=== PATIENT | female | born 1940 | race Caucasian/White ===

== ENCOUNTER 2017-11-19 09:34 | Emergency (ER) | payer OTHER ==
[~2017-11-19] VITALS: Ht 157.5 cm; Wt 50.8 kg
[~2017-11-19 09:34] MED LIST: AZITHROMYCIN500 MG PO; CIPROFLOXIN HC2.5 M1 OPHTHALMIC; FOLIC ACID1 MG PO; IBUPROFEN 800800 M1 PO; KLOR-CON 1010 MEQ PO; LASIX 20 MG TAB20 MG PO; LOMOTIL 2.5-0.01 TAB PO; OTIPRIO1 ML OT; POTASSIUM20 PO; PREDNISONE 10 M10 MG PO; TRAMADOL 50 MG50 MG PO; TUMS PO; UNICOMPLEX M TA1 TA1 PO; VITAMIN D1000 UNI1 PO
[2017-11-19] MEDS ORDERED: PROBIOTIC1 EAC1 PO (09:47)
[2017-11-19] MEDS ORDERED: CIPRO250 M1 PO (09:47)
[2017-11-19 09:55] LABS: URINE BILIRUBIN NEGATIVE (Negative); URINE BLOOD 2+ (Negative); URINE CLARITY CLEAR; URINE COLOR YELLOW; URINE GLUCOSE-RANDOM NEGATIVE (Negative); URINE KETONES NEGATIVE (Negative); URINE NITRITE-REFLEX NEGATIVE (Negative); URINE PROTEIN NEGATIVE (Negative); URINE SPECIFIC GRAVITY 1.025 (1.005-1.030); URINE UROBILINOGEN 0.2 E.U./dl (0.2-1.0)
[2017-11-19 09:56] LABS: URINE LEUKOCYTES-REFLEX 2+ (Negative)
[2017-11-19 10:04] LABS: SQUAMOUS 0-3 Few /LPF (0-3)
[2017-11-19 10:05] LABS: ABSOLUTE BASOPHILS 0.1 thou/uL (0.0-0.2); ABSOLUTE LYMPHOCYTES 1.2 thou/uL (0.8-5.3); ABSOLUTE MONOCYTES 0.4 thou/uL (0.0-1.2); ABSOLUTE NEUTROPHILS 4.6 thou/uL (1.6-8.1); EOSINOPHILS 0.5 %; HEMATOCRIT 39.4 % (37.0-47.0); HEMOGLOBIN 13.1 gm/dL (12.0-15.0); LYMPHOCYTES 18.7 %; MCH 31.5 pg (26.0-34.0); MCHC 33.3 g/dL (28.0-37.0); MCV 94.6 fL (80.0-100.0); MONOCYTES 6.9 %; NUCLEATED RBCS 0 /100WBC; PLATELET COUNT* 203 thou/uL (150-400); POLYS 72.9 %; RBC 4.17 mil/uL (4.20-5.00); RDW-CV 12.9 % (10.5-14.5); WBC 6.4 thou/uL (4.0-11.0)
[2017-11-19 10:05] LABS: BACTERIA-REFLEX 1-9 Few /HPF (None Seen); CASTS None Seen /LPF (None Seen); CRYSTALS None Seen /LPF (None Seen); MUCUS 4-6 Moderate strn/LPF (None Seen); URINE RBC 3-10 Few /HPF (0-2); URINE WBC-REFLEX 6-15 Few /HPF (0-5)
[2017-11-19 10:09] LABS: CALCIUM 8.7 mg/dL (8.5-10.1); CREATININE 0.9 mg/dL (0.6-1.3); POTASSIUM 4.1 mmol/L (3.5-5.1)
[2017-11-19 10:14] LABS: ALBUMIN 3.6 g/dL (3.4-5.0); TOTAL BILIRUBIN 0.3 mg/dL (<0.1-1.0)
[2017-11-19 13:10] VITALS: BP 144/67
== END 2017-11-19 13:10 | disposition home or self-care (01) ==
LOC: M.ERS 09:34
PROVIDERS: Personal Emergency Response Attendant
DX: E86.0 Dehydration (principal); M06.9 Rheumatoid arthritis, unspecified; Z90.49 Acquired absence of other specified parts of digestive tract; Z90.89 Acquired absence of other organs; Z85.71 Personal history of Hodgkin lymphoma; Z88.1 Allergy status to other antibiotic agents; Z88.5 Allergy status to narcotic agent; Z88.8 Allergy status to other drugs, medicaments and biological substances; Z88.2 Allergy status to sulfonamides

== ENCOUNTER 2018-01-30 11:25 | Emergency (ER) | payer OTHER ==
[~2018-01-30] VITALS: Ht 154.9 cm; Wt 53.1 kg
[~2018-01-30 11:25] MED LIST changes: +CIPRO250 M1 PO; +PROBIOTIC1 EAC1 PO
[2018-01-30] MEDS ORDERED: LEVAQUIN 500 M500 M2 PO (11:40)
[2018-01-30] MEDS ORDERED: FLAGYL500 MG PO (11:40)
[2018-01-30 12:07] LABS: ABSOLUTE LYMPHOCYTES 0.9 thou/uL (0.8-5.3); ABSOLUTE MONOCYTES 0.6 thou/uL (0.0-1.2); ABSOLUTE NEUTROPHILS 2.2 thou/uL (1.6-8.1); BASOPHILS 0.7 %; EOSINOPHILS 0.6 %; HEMATOCRIT 39.1 % (37.0-47.0); LYMPHOCYTES 23.9 %; MCH 31.5 pg (26.0-34.0); MCHC 33.1 g/dL (28.0-37.0); MONOCYTES 16.1 %; MPV 8.9 fl. (7.2-11.1); NUCLEATED RBCS 0 /100WBC; PLATELET COUNT* 160 thou/uL (150-400); POLYS 58.7 %; RBC 4.12 mil/uL (4.20-5.00); RDW-CV 13.5 % (10.5-14.5); WBC 3.7 thou/uL (4.0-11.0)
[2018-01-30 12:28] LABS: ANION GAP 7 mmol/L (7-16); BUN 13 mg/dL (7-18); CALCIUM 8.6 mg/dL (8.5-10.1); CHLORIDE 102 mmol/L (98-107); CO2 30 mmol/L (21-32); CREATININE 0.9 mg/dL (0.6-1.3); GLUCOSE 125 mg/dL (70-99); POTASSIUM 3.6 mmol/L (3.5-5.1); SODIUM 139 mmol/L (136-145)
[2018-01-30 12:32] LABS: ALBUMIN 3.2 g/dL (3.4-5.0); ALKALINE PHOSPHATASE 119 U/L (46-116); LIPASE 57 U/L (73-393); SGOT 20 U/L (15-37); SGPT 19 U/L (30-65); TOTAL BILIRUBIN 0.2 mg/dL (<0.1-1.0); TROPONIN-I LEVEL <0.06 ng/mL (<0.06)
[2018-01-30 13:35] LABS: URINE BILIRUBIN NEGATIVE (Negative); URINE BLOOD 2+ (Negative); URINE CLARITY CLEAR; URINE COLOR YELLOW; URINE GLUCOSE-RANDOM NEGATIVE (Negative); URINE KETONES NEGATIVE (Negative); URINE LEUKOCYTES NEGATIVE (Negative); URINE NITRITE NEGATIVE (Negative); URINE PROTEIN NEGATIVE (Negative); URINE UROBILINOGEN 0.2 E.U./dl (0.2-1.0)
[2018-01-30 13:42] LABS: SQUAMOUS NONE SEEN /LPF (0-3)
[2018-01-30 13:43] LABS: BACTERIA None Seen /HPF (None Seen); CRYSTALS None Seen /LPF (None Seen); HYALINE CASTS 0-3 Few /LPF (None Seen); MUCUS None Seen strn/LPF (None Seen); URINE RBC 3-10 Few /HPF (0-2); URINE WBC 0-5 Rare /HPF (0-5)
[2018-01-30] MEDS ORDERED: XANAX 0.5 MG0.5 M1 PO (13:59)
[2018-01-30] MEDS ORDERED: UNISOM SLEEP AI25 MG PO (14:15)
[2018-01-30 14:26] VITALS: BP 113/51
== END 2018-01-30 14:27 | disposition home or self-care (01) ==
LOC: M.ERS 11:25
PROVIDERS: Physician Assistant
DX: F41.9 Anxiety disorder, unspecified (principal); R51 Headache; R19.7 Diarrhea, unspecified; M06.9 Rheumatoid arthritis, unspecified; Z88.1 Allergy status to other antibiotic agents; Z88.5 Allergy status to narcotic agent; Z88.2 Allergy status to sulfonamides; Z88.8 Allergy status to other drugs, medicaments and biological substances; Z90.49 Acquired absence of other specified parts of digestive tract

== ENCOUNTER 2018-05-23 13:40 | Inpatient (IN) | payer OTHER ==
[~2018-05-23] VITALS: Ht 157.5 cm; Wt 60.8 kg
--- NOTE | ~2018-05-23 | CON ---
[address] [address] CONSULTATION Name: JUAREZ TARIQ Room: [address] IN M.R.#: [id number] Admission: 05/23/18 Attend Phys: Gio Cervantes MD Discharge: 05/26/18 Date of : 38 Report #: [id number] THIS REPORT FOR: //name// CC: Carrie Cervantes DATE OF SERVICE: 05/26/2018 HISTORY OF PRESENT ILLNESS: This is a pleasant 78-year-old female with past medical history significant for rheumatoid arthritis, non-Hodgkin's lymphoma, which was treated 20 years back, who is presenting for evaluation of weakness and cough, fever. The patient reports that she has had ongoing fever for the last 2-3 days along with night sweats and weight loss. The patient reports losing about 10 pounds over the last one month. The GI service has been consulted for evaluation of a dilated colon noted on her CT. The patient was initially diagnosed with non-Hodgkin's lymphoma more than 20 years back and since then has been in remission. The patient underwent partial gastrectomy, small bowel resection and resection of large bowel at that time. 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 The patient also reports that she has noticed increasing difficulty swallowing over the last one month with progressive dysphagia to solids and very thick liquids. The patient reports that she also has been anxious and her appetite has decreased as she recently lost her . PAST MEDICAL HISTORY: As mentioned above, the patient has history of rheumatoid arthritis and non-Hodgkin's lymphoma. PAST SURGICAL HISTORY: The patient had partial gastrectomy, duodenectomy, hemicolectomy. The patient also had cataract surgeries in the past. SOCIAL HISTORY: The patient denies smoking, alcohol or recreational drug use. FAMILY HISTORY: There is no family history of gastroesophageal or colorectal cancer. REVIEW OF SYSTEMS: A comprehensive 10-point review of systems is negative except for what was mentioned in the HPI. PHYSICAL EXAMINATION: VITAL SIGNS: Temperature 37.0, pulse rate 95, respirations 17, blood pressure 112/53. GENERAL: The patient is alert, awake, oriented x 3. HEENT: Pupils are equal, round, reactive to light and accommodation. [place] [address] CONSULTATION Name: JUAREZ TARIQ Room: [address]#: [id number] Admission: 05/23/18 Attend Phys: Gio Cervantes MD Discharge: 05/26/18 Date of : 38 Report #: [id number] NECK: There is no congestion. LUNGS: Clear to auscultation bilaterally. CARDIOVASCULAR: Rate and rhythm regular. S1, S2 present. ABDOMEN: Soft. There is no distention, guarding or rigidity. EXTREMITIES: Warm and well perfused. There is no edema. LABORATORY DATA: Hemoglobin 11.8, hematocrit 35.5, WBC count 7.8, platelet count 323. Sodium 138, potassium 4.5, chloride 102, bicarbonate 28, BUN 14, creatinine 0.9. IMAGING: CT abdomen and pelvis, this demonstrates operative changes compatible with distal gastrectomy, partial duodenectomy and small and large bowel anastomosis. The proximal colon appears to be dilated and filled with stool. Distal colon is evacuated. The patient had a barium enema and this demonstrates no obvious masses, presence of dilation of proximal colon and relative decompression of the distal colon. ASSESSMENT AND PLAN: This is a pleasant 78-year-old female with past medical history of non-Hodgkin's lymphoma, status post partial gastrectomy, duodenectomy, small and large bowel resection with anastomosis, history of chronic diarrhea who is presenting for evaluation of fevers and night sweats and weight loss. The patient was noted to have dilation of the large bowel loops on CT scan. As a result, she had a barium enema performed. Barium enema failed to demonstrate any significant obstruction to outflow of contrast in the distal colon. The patient reports that her bowel movements have essentially been unchanged. She does have chronic diarrhea from recurrent bouts of small intestinal bacterial overgrowth and this has remained unchanged. The patient also has been complaining of intermittent dysphagia to solids over the last one month. I did offer the patient EGD and colonoscopy for evaluation of these, but she refused to have them at this time. She follows with Dr. Richards as outpatient and reported that she would like to call him and set up a clinic appointment. I would give the patient a 14-day course of metronidazole 500 mg p.o. t.i.d. for small intestinal bacterial overgrowth and we will set up the clinic followup visit. By: [id number] Norman MD /marc
--- NOTE | ~2018-05-23 | CON ---
[address] [address] CONSULTATION Name: JUAREZ TARIQ Room: [address] IN .R.#: [id number] Admission: 05/23/18 Attend Phys: Gio Cervantes MD Discharge: Date of : 38 Report #: [id number] THIS REPORT FOR: //name// CC: Orville Denny MD REASON FOR CONSULT: Distant history of non-Hodgkin's lymphoma, now with sweats and fever and weight loss. HISTORY OF PRESENT ILLNESS: The patient is a very pleasant 78-year-old female who had a distant history of intermediate-grade non-Hodgkin's lymphoma in 1996. It sounds like she received chemotherapy with PMitCEBO and was thought to be in remission. It sounds like about the time of surgery, she had major surgery with resection of part of her distal stomach, part of the duodenum, part of large intestine. Also back pain and sounds like it was complicated by that. She also had some rectal incontinence and also has had chronic diarrhea since that time. The patient reports that her in December, she was not eating very well. Her mood was not good. She was begun on Cymbalta. Her chronic diarrhea of 20 years then got better when she began the Cymbalta. She then has about a 10-day history of some left-sided hip and knee troubles what sounds like was almost radiating down her leg, that her whole body was achy, sounds like she got a steroid shot in her hip about last Friday. Note that today is Friday, so about 5 days ago on Friday, she felt much better. She also said that she has had some night sweats began about 4 days before the shot and lasted probably for about the last week. She denied any new headache troubles. She does have some chronic sinus drainage, which is clear and unchanged. It causes her to cough occasionally. No mouth sores, no skin rash. No blood in her urine or stool. No burning on urination or urgency. She does have some chronic reflux, but it sounds like it may be partly related per her description to her sinus drainage. No skin infections that she is aware of. She is not aware being around anyone specifically sick recently. PAST MEDICAL HISTORY: Notable for the history of what sounds like intermediate-grade non-Hodgkin's lymphoma of the abdomen from about 1996, receive chemotherapy, thought to be in remission, has not seen Dr. Ferguson for probably, sounds like may be 15 or 18 years, also history of rheumatoid arthritis that she says she has not had any treatment or joint pains like that for about 15-20 years. She also has had chronic diarrhea since the surgery. Also had the trouble with what sounds almost a sphincter reconstruction by Dr. Surinder Schumacher that did not help. Also history of hysterectomy and an appendectomy in the past, also had a benign left breast biopsy, 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 FAMILY HISTORY: Father and mother both had cardiac illnesses as they got older. She is an only child. I think she has family, but they have been healthy. As mentioned above, her in December from cardiac issues. ALLERGIES: Has had troubles with AMOXICILLIN, CODEINE, VERSED, PROPOXYPHENE, and SULFA ANTIBIOTICS. MEDICATIONS: Here in the hospital currently include Lovenox 40 mg at bedtime, ceftriaxone 1 gram daily, pantoprazole 40 mg daily, melatonin 3 mg at night p.r.n., vitamin D 1000 units b.i.d., duloxetine 20 daily, multivitamin with mineral 1 tab daily, folic acid 1 mg daily, lactobacillus 1 tab daily, Tylenol 500 mg q. 4 hours p.r.n. LABORATORY DATA: Lab tests reviewed here include a BUN of 19, creatinine of 0.9. Liver functions were normal with an AST of 24. Total bilirubin 0.3, alkaline phosphatase was slightly elevated at 142. Note that in the past, she has been in the 154-136 range. Albumin 3.3. Lactic acid 1.4. TSH 0.869. Vitamin B12 556. INR 1.0. White count on admission 12, today 6.5, hemoglobin on admission 13, today 10.9, MCV 93.2, which is stable compared to 1996 and also from 11/2015. Platelet count 328 yesterday, 272 today. Differential: No reported acute changes. ANC yesterday was 9.2, ANC today is 4.3. Sed rate elevated at 53. CRP elevated at 27.9. HIV test pending. Influenza test not detected. UA notable for 3+ leukocytes and nitrite negative, though there were bacteria seen 10-30 and 0-5 WBCs, 0-3 squamous cells. RADIOLOGIC DATA: Radiologic studies this admit include chest x-ray without any acute findings. PHYSICAL EXAMINATION: VITAL SIGNS: Height is 5 feet 2, which is 157.5 cm. Weight is 134 pounds, which is 60.8 kg. Blood pressure most recently 96/52 the left arm with respirations of 16, pulse 62, temperature 97.4. Note that her temperature was 107.3 in the ER. MOOD: The patient is alert and pleasant and conversant. NEUROLOGIC: Speech and thought pattern appear to be normal. She is moving arms and legs. Face is symmetrical. LUNGS: Have symmetric respirations without rales, rhonchi or wheezes. Does have central rhonchi, occasionally clear when she coughs from nasal drainage. HEART: Appears regular rate. LYMPHATICS: No enlarged lymph nodes in the supraclavicular, cervical, axillary or inguinal, epitrochlear region. ABDOMEN: Nontender, [place] [address] CONSULTATION Name: JUAREZ TARIQ Room: [address]#: [id number] Admission: 05/23/18 Attend Phys: Gio Cervantes MD Discharge: Date of : 38 Report #: [id number] EXTREMITIES: Without edema. SKIN: Appears to be intact without any unusual ecchymosis or bruising. ASSESSMENT AND PLAN: 1. History of intermediate-grade lymphoma from 1996. Now 22 years later, it will be highly unlikely for that to recur. I am suspicious that her recent sweats and also documented fever may be related to urinary tract infection. We would suggest waiting to see if this resolves tonight. If it does not, we could reimage with CAT scans, so I would doubt that, that would be causing her symptoms, but there could be some other malignancy or process. Our team will follow up with the patient tomorrow. 2. Mild anemia. Follow serial counts. May consider checking iron panel if persists low. 3. Fever and bacteriuria, on ceftriaxone. Defer to infectious disease. Await final results. Note that influenza antigen tests were negative. Cultures pending on urinalysis. 4. Mood, is on Cymbalta 20 mg. 5. Chronic diarrhea, most likely underlying related to prior bowel surgery from 1996. With fever, we will await to see what other testing is suggested. 6. Sinus drainage present for many years. 7. Supposed history of rheumatoid arthritis, reports no symptoms or treatment for large number of years. 8. Weight loss, has occurred since 's . Albumin appears to be very good range, which would suggest not from occult malignancy. Our team will follow. By: [id number] Vallejo MD /nt
[~2018-05-23 13:40] MED LIST changes: +FLAGYL500 MG PO; +LEVAQUIN 500 M500 M2 PO; +UNISOM SLEEP AI25 MG PO; +XANAX 0.5 MG0.5 M1 PO
[2018-05-23 14:07] VITALS: BP 135/94
[2018-05-23] MEDS ORDERED: CYMBALTA20 MG PO (14:15)
[2018-05-23] MEDS ORDERED: XANAX 0.25 MG0.25 MG PO (14:16)
[2018-05-23 15:22] LABS: INFLUENZA A ANTIGEN None Detected (None Detect); INFLUENZA B ANTIGEN None Detected (None Detect)
[2018-05-23 15:29] LABS: ABSOLUTE BASOPHILS 0.1 thou/uL (0.0-0.2); ABSOLUTE LYMPHOCYTES 1.5 thou/uL (0.8-5.3); ABSOLUTE MONOCYTES 1.1 thou/uL (0.0-1.2); ABSOLUTE NEUTROPHILS 9.2 thou/uL (1.6-8.1); BASOPHILS 0.6 %; EOSINOPHILS 0.2 %; HEMATOCRIT 39.8 % (37.0-47.0); LYMPHOCYTES 12.8 %; MCH 30.3 pg (26.0-34.0); MCHC 32.7 g/dL (28.0-37.0); MCV 92.5 fL (80.0-100.0); MONOCYTES 9.5 %; MPV 8.4 fl. (7.2-11.1); NUCLEATED RBCS 0 /100WBC; PLATELET COUNT* 328 thou/uL (150-400); POLYS 76.9 %; RDW-CV 13.2 % (10.5-14.5)
[2018-05-23 15:31] LABS: URINE BILIRUBIN NEGATIVE (Negative); URINE BLOOD 2+ (Negative); URINE CLARITY CLEAR; URINE COLOR YELLOW; URINE GLUCOSE-RANDOM NEGATIVE (Negative); URINE KETONES NEGATIVE (Negative); URINE NITRITE-REFLEX NEGATIVE (Negative); URINE PROTEIN NEGATIVE (Negative); URINE SPECIFIC GRAVITY 1.015 (1.005-1.030); URINE UROBILINOGEN 0.2 E.U./dl (0.2-1.0)
[2018-05-23 15:33] LABS: URINE LEUKOCYTES-REFLEX 3+ (Negative)
[2018-05-23 15:34] LABS: ANION GAP 7 mmol/L (7-16); BUN 19 mg/dL (7-18); CALCIUM 8.5 mg/dL (8.5-10.1); CHLORIDE 99 mmol/L (98-107); CO2 27 mmol/L (21-32); CREATININE 0.9 mg/dL (0.6-1.3); GLUCOSE 118 mg/dL (70-99); POTASSIUM 4.3 mmol/L (3.5-5.1); PROTIME 10.6 Seconds (9.20-11.50); SODIUM 133 mmol/L (136-145)
[2018-05-23 15:45] LABS: ALBUMIN 3.3 g/dL (3.4-5.0); ALKALINE PHOSPHATASE 142 U/L (46-116); LIPASE 51 U/L (73-393); NT-PRO BRAIN NAT PEPTIDE 829 pg/mL (<300); SGOT 24 U/L (15-37); SGPT 30 U/L (30-65); TOTAL BILIRUBIN 0.3 mg/dL (<0.1-1.0); TOTAL PROTEIN 7.6 g/dL (6.4-8.2); TROPONIN-I LEVEL <0.06 ng/mL (<0.06)
[2018-05-23 15:48] LABS: SQUAMOUS 0-3 Few /LPF (0-3); URINE WBC-REFLEX 0-5 Rare /HPF (0-5)
[2018-05-23 15:49] LABS: MUCUS 0-3 Light strn/LPF (None Seen); URINE RBC 3-10 Few /HPF (0-2)
[2018-05-23 15:50] LABS: CASTS None Seen /LPF (None Seen); CRYSTALS None Seen /LPF (None Seen)
[2018-05-23 17:09] VITALS: BP 120/63
[2018-05-23 17:10] VITALS: BP 117/58
[2018-05-24] VITALS: BP 96/52
[2018-05-24 04:20] LABS: ABSOLUTE LYMPHOCYTES 1.4 thou/uL (0.8-5.3); ABSOLUTE MONOCYTES 0.8 thou/uL (0.0-1.2); ABSOLUTE NEUTROPHILS 4.3 thou/uL (1.6-8.1); BASOPHILS 0.6 %; EOSINOPHILS 0.7 %; HEMATOCRIT 33.2 % (37.0-47.0); LYMPHOCYTES 21.1 %; MCH 30.6 pg (26.0-34.0); MCHC 32.8 g/dL (28.0-37.0); MCV 93.2 fL (80.0-100.0); MONOCYTES 12.4 %; MPV 8.3 fl. (7.2-11.1); NUCLEATED RBCS 0 /100WBC; PLATELET COUNT* 272 thou/uL (150-400); POLYS 65.2 %; RBC 3.56 mil/uL (4.20-5.00); RDW-CV 13.3 % (10.5-14.5); WBC 6.5 thou/uL (4.0-11.0)
[2018-05-24 04:44] LABS: ANION GAP 7 mmol/L (7-16); BUN 13 mg/dL (7-18); CALCIUM 8.2 mg/dL (8.5-10.1); CHLORIDE 108 mmol/L (98-107); CO2 25 mmol/L (21-32); CREATININE 0.8 mg/dL (0.6-1.3); GLUCOSE 113 mg/dL (70-99); MAGNESIUM 1.6 mg/dL (1.8-2.4); SODIUM 140 mmol/L (136-145); TROPONIN-I LEVEL <0.06 ng/mL (<0.06)
[2018-05-24 04:50] LABS: HEMOGLOBIN 10.9 gm/dL (12.0-15.0)
[2018-05-24 05:46] LABS: ESR (SEDRATE) 53 mm/hr (0-30)
[2018-05-24 08:00] VITALS: BP 120/49
--- NOTE | 2018-05-24 12:13 | EKG ---
[place] [address] ELECTROCARDIOGRAM REPORT Name: JUAREZ TARIQ Room: [address] ADM IN .R.#: [id number] Admission: 05/23/18 Attend Phys: Gio Cervantes MD Discharge: Date of : 38 Report #: [id number] THIS REPORT FOR: //name// [facility] ED Test Date: 2018-05-23 Test Time: 15:22:34 Pat Name: JUAREZ TARIQ Department: Room: [facility] Gender: F Railroad Maintenance Clerk: ILYA : 1940 Requested By: Ham Barnhart Order Number: [id number] MD: Shahab Boykin Measurements Intervals [place] Rate: 77 P: 82 KS: 124 QRS: 63 QRSD: 84 T: 50 QT: 372 QTc: 421 Interpretive Statements Sinus rhythm Compared to ECG 11/29/2015 15:44:36 No significant changes Electronically Signed On 05-24-2018 12:13:22 [employer]YROLL SECRETARY by Shahab Boykin [email or web address] <ELECTRONICALLY SIGNED> By: Shahab Boykin MD, [facility] 05/24/18 1213 1522 21 Shahab Boykin MD, FACC /EPI
[2018-05-24 16:00] VITALS: BP 138/60
[2018-05-25] VITALS: BP 117/59
[2018-05-25 04:05] LABS: CALCIUM 8.4 mg/dL (8.5-10.1); CREATININE 0.9 mg/dL (0.6-1.3); MAGNESIUM 2.1 mg/dL (1.8-2.4); POTASSIUM 4.5 mmol/L (3.5-5.1)
[2018-05-25 04:12] LABS: HEMATOCRIT 35.4 % (37.0-47.0); HEMOGLOBIN 11.8 gm/dL (12.0-15.0); MCH 31.1 pg (26.0-34.0); MCHC 33.4 g/dL (28.0-37.0); MCV 93.2 fL (80.0-100.0); MPV 8.3 fl. (7.2-11.1); PLATELET COUNT* 323 thou/uL (150-400); RDW-CV 13.5 % (10.5-14.5); WBC 7.8 thou/uL (4.0-11.0)
--- NOTE | 2018-05-25 07:37 | CON ---
[address] [address] CONSULTATION Name: JUAREZ TARIQ Room: [address] IN M.R.#: [id number] Admission: 05/23/18 Attend Phys: Gio Cervantes MD Discharge: Date of : 38 Report #: [id number] THIS REPORT FOR: //name// CC: Carrie Cervantes DATE OF SERVICE: 05/24/2018 INFECTIOUS DISEASE CONSULTATION ATTENDING PHYSICIAN: Gio Cervantes M.D. REASON FOR EVALUATION: Complicated urinary tract infection. HISTORY OF PRESENT ILLNESS: Chart reviewed, the patient examined. This is an 78-year-old female with distant history of greater than 20 years ago of non-Hodgkin's lymphoma, who presented with a constellation of signs and symptoms, including cough. It is not clear if she had fevers. She has had several days of heavy night sweats as well. She notes onset roughly 9 days ago, when she developed generalized joint pain and felt perhaps it was an exacerbation of her rheumatoid arthritis which she has had, although describes no really flare since the 1970s. She was evaluated and given some corticosteroids and that resolved; however, she had persistent issues with the night sweats. It is notable she has chronic diarrhea that would have been exacerbated as well, she states, in retrospect, she had eaten at a [employer] restaurant and the entirety of the illness was subsequent to that. Evaluation noted negative influenzae antigen. CBC, white count was mildly elevated at 12,000. Urinalysis did show some degree of bacteriuria, although minimal pyuria. Lactic acid 1.4. Chest x-ray was otherwise unremarkable. Sed rate was 53. She was empirically started on therapy with ceftriaxone. Overall, she feels somewhat better, although she has had persistent night sweats. She did have a degree of weight loss, although this coincided with the of her spouse. She is not encephalopathic. Denies significant pulmonary or gastrointestinal complaints at this point. ALLERGIES: CODEINE, PROPOXYPHENE, AMOXICILLIN AND MIDAZOLAM. MEDICATIONS: Current medicines include enoxaparin, ceftriaxone, pantoprazole, ipratropium and albuterol inhaler, melatonin, cholecalciferol, duloxetine, folic acid and Lactobacillus. PAST MEDICAL HISTORY: As noted above, distant history of non-Hodgkin's lymphoma; rheumatoid arthritis, again distant history. 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 [address] CONSULTATION Name: ANGEL TARIQTHOMAS Charlton Room: [address] IN [facility]#: [id number] Admission: 05/23/18 Attend Phys: Gio Cervantes MD Discharge: Date of : 38 Report #: [id number] SOCIAL HISTORY: Nonsmoker. Occasional ethanol. No illicit drug use. FAMILY HISTORY: Noncontributory. REVIEW OF SYSTEMS: Otherwise, unremarkable 10-point review of systems, with the exception noted in the above history of present illness. PHYSICAL EXAMINATION: GENERAL: She is pleasant, alert, cooperative, appears chronically ill and undernourished. VITAL SIGNS: Temperature 101.3 max, more recently 97.4; pulse 62; respirations 16 and blood pressure 96/52. SKIN: Warm. There are no particular rashes. HEENT: Normocephalic. Extraocular muscles intact. NECK: Supple. LUNGS: Somewhat diminished, few scattered crackles at the bases posteriorly. HEART: Regular. I do not appreciate a murmur. ABDOMEN: Soft, nontender and nondistended. EXTREMITIES: No cyanosis. GENITOURINARY: Deferred. RECTAL: Deferred. LABORATORY DATA: As described above, influenza antigen was negative. CBC: White count 12.0, H and H 13.0 and 39.8 and platelets of 328,000. PT of 10.6, INR of 1.0. Electrolytes: Sodium 133, potassium 4.3, chloride 99, bicarbonate is 27, anion gap of 7 and BUN and creatinine 19 and 0.9. LFTs unremarkable. Alkaline phosphatase borderline elevated at 142. Albumin 3.3. Total protein of 7.6. Estimated GFR 60. Lactic acid 1.4. CRP of 27.9. TSH of 0.869. ASSESSMENT AND PLAN: Night sweats. It is not entirely clear if it has been accompanied with fevers, had not been recorded, although certainly on admission, temperature was elevated at 101.3, although she defervesced quite quickly. We will continue empiric therapy with ceftriaxone. I did tell her I would get some stool studies to confirm this arthritic Staph was not a post-enteritis reactive arthritis. At this point, she does not look overly toxic. We will monitor expectantly. Her other evidence of ongoing infection either focal site of pyogenic infection or perhaps more likely a systemic illness with other bacterial or viral etiology. I did discuss with Dr. Vallejo. He is not inclined to favor a diagnosis of recurrent lymphoma at this point. <ELECTRONICALLY SIGNED> By: Mehrdad Calabrese MD 05/25/18 0737 [id number] [id number] Calabrese MD /nt
[2018-05-25 07:40] VITALS: BP 140/65
[2018-05-25 15:10] LABS: HIV-1/HIV-2 ANTIBODY Non Reactive (Non Reactive)
[2018-05-25 15:13] VITALS: BP 132/54
[2018-05-25 16:10] LABS: ABSOLUTE BASOPHILS 0.1 thou/uL (0.0-0.2); ABSOLUTE EOSINOPHILS 0.1 thou/uL (0.0-0.7); ABSOLUTE LYMPHOCYTES 1.3 thou/uL (0.8-5.3); ABSOLUTE MONOCYTES 0.8 thou/uL (0.0-1.2); ABSOLUTE NEUTROPHILS 5.6 thou/uL (1.6-8.1); BASOPHILS 1.2 %; EOSINOPHILS 1.3 %; LYMPHOCYTES 16.4 %; MONOCYTES 9.8 %; POLYS 71.3 %
[2018-05-26 00:04] VITALS: BP 124/61
[2018-05-26 03:06] LABS: HEMOGLOBIN 11.5 g/dL (11.1-15.9)
[2018-05-26 08:05] VITALS: BP 103/57
[2018-05-26 14:05] VITALS: BP 103/57
[2018-05-26] MEDS ORDERED: FLAGYL500 M1 PO (15:16)
[2018-05-26 15:49] VITALS: BP 112/53
== END 2018-05-26 16:58 | disposition home or self-care (01) | DRG 864 ==
LOC: M.ERS 13:40 → M.3W 16:10 → M.TBA-ER 16:10 → M.3W 17:34
PROVIDERS: Family Medicine; ADMIT Family Medicine
DX: R50.9 Fever, unspecified (principal); C85.90 Non-Hodgkin lymphoma, unspecified, unspecified site; E44.1 Mild protein-calorie malnutrition; D64.9 Anemia, unspecified; K52.9 Noninfective gastroenteritis and colitis, unspecified; R13.10 Dysphagia, unspecified; E83.42 Hypomagnesemia; M25.50 Pain in unspecified joint; N18.3 Chronic kidney disease, stage 3 (moderate); M06.9 Rheumatoid arthritis, unspecified; K21.9 Gastro-esophageal reflux disease without esophagitis; Z90.49 Acquired absence of other specified parts of digestive tract; Z98.41 Cataract extraction status, right eye; Z98.42 Cataract extraction status, left eye; Z79.899 Other long term (current) drug therapy; Z88.5 Allergy status to narcotic agent; Z88.2 Allergy status to sulfonamides; Z88.8 Allergy status to other drugs, medicaments and biological substances; Z88.1 Allergy status to other antibiotic agents; Z92.21 Personal history of antineoplastic chemotherapy; Z90.710 Acquired absence of both cervix and uterus; Z82.49 Family history of ischemic heart disease and other diseases of the circulatory system; Z68.24 Body mass index [BMI] 24.0-24.9, adult

== ENCOUNTER 2018-06-15 10:00 | Inpatient (IN) | payer OTHER ==
[~2018-06-15] VITALS: Ht 157.5 cm; Wt 49.9 kg
[~2018-06-15 10:00] MED LIST changes: +CYMBALTA20 MG PO; +FLAGYL500 M1 PO; +XANAX 0.25 MG0.25 MG PO
[2018-06-15 10:14] VITALS: BP 156/67
[2018-06-15 10:35] LABS: ABSOLUTE EOSINOPHILS 0.1 thou/uL (0.0-0.7); ABSOLUTE MONOCYTES 0.5 thou/uL (0.0-1.2); ABSOLUTE NEUTROPHILS 5.4 thou/uL (1.6-8.1); BASOPHILS 0.4 %; EOSINOPHILS 1.2 %; HEMATOCRIT 36.6 % (37.0-47.0); LYMPHOCYTES 14.9 %; MCH 30.4 pg (26.0-34.0); MCHC 32.7 g/dL (28.0-37.0); MCV 92.8 fL (80.0-100.0); MPV 8.1 fl. (7.2-11.1); NUCLEATED RBCS 0 /100WBC; PLATELET COUNT* 313 thou/uL (150-400); POLYS 76.5 %; RBC 3.94 mil/uL (4.20-5.00); RDW-CV 14.2 % (10.5-14.5)
[2018-06-15 10:43] LABS: CALCIUM 8.5 mg/dL (8.5-10.1); CREATININE 0.9 mg/dL (0.6-1.3); POTASSIUM 4.1 mmol/L (3.5-5.1)
[2018-06-15 10:48] LABS: ALBUMIN 3.1 g/dL (3.4-5.0); MAGNESIUM 1.8 mg/dL (1.8-2.4); TOTAL BILIRUBIN 0.3 mg/dL (<0.1-1.0)
--- NOTE | 2018-06-15 10:51 | NUR ---
XRAY AT BEDSIDE
[2018-06-15 11:11] LABS: BE 1.8 mmol/L (-2 to +3); PCO2 37.2 mmHg (35.0-45.0); PO2 92.1 mmHg (75.0-100.0); pH 7.455 (7.340-7.450)
[2018-06-15 13:10] LABS: URINE BILIRUBIN NEGATIVE (Negative); URINE BLOOD TRACE (Negative); URINE CLARITY CLEAR; URINE COLOR YELLOW; URINE GLUCOSE-RANDOM NEGATIVE (Negative); URINE KETONES NEGATIVE (Negative); URINE NITRITE-REFLEX NEGATIVE (Negative); URINE PROTEIN NEGATIVE (Negative); URINE UROBILINOGEN 0.2 E.U./dl (0.2-1.0)
[2018-06-15 13:15] LABS: URINE LEUKOCYTES-REFLEX 2+ (Negative)
[2018-06-15 13:48] LABS: SQUAMOUS NONE SEEN /LPF (0-3)
[2018-06-15 13:49] LABS: URINE WBC-REFLEX 0-5 Rare /HPF (0-5)
[2018-06-15 13:50] LABS: BACTERIA-REFLEX 1-9 Few /HPF (None Seen); CASTS None Seen /LPF (None Seen); CRYSTALS None Seen /LPF (None Seen); MUCUS None Seen strn/LPF (None Seen); URINE RBC None Seen /HPF (0-2)
[2018-06-15 15:05] VITALS: BP 121/50
[2018-06-15 16:20] VITALS: BP 123/60
[2018-06-15 17:30] VITALS: BP 115/77
--- NOTE | 2018-06-15 18:43 | NUR ---
ALERT AND ORIENTED X4. UP STAND BY ASSIST IN ROOM. IV IS PATENT AND INFUSING. DENIES PAIN AND NAUSEA. TOLERATING DIET. VSS ON ROBYN AIR. HOURLY ROUNDS HAVE BEEN MAINTAINED SINCE ARRIVING TO UNIT. CALL LIGHT IS WITHIN REACH. NURSING WILL CONTINUE TO MONITOR.
[2018-06-15 20:00] VITALS: BP 127/66
[2018-06-16 04:28] VITALS: BP 117/62
[2018-06-16 04:35] LABS: CALCIUM 8.2 mg/dL (8.5-10.1); CREATININE 0.9 mg/dL (0.6-1.3); MAGNESIUM 1.9 mg/dL (1.8-2.4); POTASSIUM 3.8 mmol/L (3.5-5.1)
[2018-06-16 04:40] LABS: ABSOLUTE EOSINOPHILS 0.1 thou/uL (0.0-0.7); ABSOLUTE LYMPHOCYTES 1.6 thou/uL (0.8-5.3); ABSOLUTE MONOCYTES 0.6 thou/uL (0.0-1.2); ABSOLUTE NEUTROPHILS 2.9 thou/uL (1.6-8.1); BASOPHILS 0.5 %; EOSINOPHILS 2.6 %; HEMATOCRIT 30.7 % (37.0-47.0); HEMOGLOBIN 10.4 gm/dL (12.0-15.0); LYMPHOCYTES 30.7 %; MCH 31.7 pg (26.0-34.0); MCHC 33.8 g/dL (28.0-37.0); MCV 93.6 fL (80.0-100.0); MONOCYTES 10.8 %; MPV 8.3 fl. (7.2-11.1); NUCLEATED RBCS 0 /100WBC; POLYS 55.4 %; RBC 3.27 mil/uL (4.20-5.00); RDW-CV 13.7 % (10.5-14.5); WBC 5.2 thou/uL (4.0-11.0)
--- NOTE | 2018-06-16 04:47 | NUR ---
PT CARE ASSUMED AT 1930. SAT MAINTAINED IN RA. CALL LIGHT WITHIN REACH AND BED IN LOW POSITION. DENIES PAIN AND SOB. ALERT AND ORIENTED X4. HOURLY ROUNDING DONE FOR PT SAFETY.
[2018-06-16 04:54] LABS: PLATELET COUNT* 229 thou/uL (150-400)
[2018-06-16 07:45] VITALS: BP 113/57
[2018-06-16 11:42] VITALS: BP 113/57
[2018-06-16 13:32] VITALS: BP 113/57
--- NOTE | 2018-06-16 13:33 | NUR ---
PATIENT LEFT UNIT AT 1325. ALERT AND ORIENTED X4. UP STAND BY ASSIST IN ROOM. IV DC'D. DENIES PAIN AND NAUSEA. TOLERATING DIET. ALL PERSONAL ITEMS LEFT WITH PATIENT. DISCHARGE INSTRUCTIONS WENT OVER AND SENT WITH PATIENT. VSS ON ROOM AIR. HOURLY ROUNDS HAVE BEEN MAINTAINED THROUGHOUT SHIFT. LEFT WITH DAUGHTER VIA CAR.
[2018-06-16 13:38] VITALS: BP 113/57
== END 2018-06-16 13:25 | disposition home or self-care (01) | DRG 392 ==
LOC: M.ERS 10:00 → M.TBA-ER 14:26 → M.ORTHSURG 15:23
PROVIDERS: Personal Emergency Response Attendant; ADMIT Family Medicine
DX: R11.2 Nausea with vomiting, unspecified (principal); E44.1 Mild protein-calorie malnutrition; E86.0 Dehydration; M06.9 Rheumatoid arthritis, unspecified; R13.10 Dysphagia, unspecified; N18.3 Chronic kidney disease, stage 3 (moderate); K59.09 Other constipation; T37.3X5A Adverse effect of other antiprotozoal drugs, initial encounter; Y92.89 Other specified places as the place of occurrence of the external cause; Z85.72 Personal history of non-Hodgkin lymphomas; Z90.710 Acquired absence of both cervix and uterus; Z98.42 Cataract extraction status, left eye; Z68.20 Body mass index [BMI] 20.0-20.9, adult; Z98.41 Cataract extraction status, right eye; Z79.899 Other long term (current) drug therapy; Z88.5 Allergy status to narcotic agent; Z88.2 Allergy status to sulfonamides; Z88.8 Allergy status to other drugs, medicaments and biological substances

== ENCOUNTER 2018-11-03 09:10 | Emergency (ER) | payer OTHER ==
[~2018-11-03] VITALS: Ht 154.9 cm; Wt 52.2 kg
[2018-11-03 09:53] LABS: ABSOLUTE BASOPHILS 0.1 thou/uL (0.0-0.2); ABSOLUTE EOSINOPHILS 0.2 thou/uL (0.0-0.7); ABSOLUTE LYMPHOCYTES 1.4 thou/uL (0.8-5.3); ABSOLUTE MONOCYTES 0.6 thou/uL (0.0-1.2); ABSOLUTE NEUTROPHILS 4.7 thou/uL (1.6-8.1); BASOPHILS 1.1 %; EOSINOPHILS 3.4 %; HEMATOCRIT 34.8 % (37.0-47.0); HEMOGLOBIN 11.7 gm/dL (12.0-15.0); LYMPHOCYTES 20.2 %; MCH 30.7 pg (26.0-34.0); MCHC 33.8 g/dL (28.0-37.0); MCV 90.8 fL (80.0-100.0); MONOCYTES 8.9 %; MPV 8.8 fl. (7.2-11.1); NUCLEATED RBCS 0 /100WBC; PLATELET COUNT* 268 thou/uL (150-400); POLYS 66.4 %; RBC 3.83 mil/uL (4.20-5.00); RDW-CV 14.4 % (10.5-14.5); WBC 7.1 thou/uL (4.0-11.0)
[2018-11-03 09:59] LABS: CALCIUM 8.2 mg/dL (8.5-10.1); CREATININE 0.9 mg/dL (0.6-1.3)
[2018-11-03 10:03] LABS: ALBUMIN 3.1 g/dL (3.4-5.0); MAGNESIUM 1.5 mg/dL (1.8-2.4); TOTAL BILIRUBIN 0.3 mg/dL (<0.1-1.0); TOTAL PROTEIN 7.2 g/dL (6.4-8.2)
[2018-11-03 10:22] LABS: URINE BILIRUBIN NEGATIVE (Negative); URINE BLOOD TRACE (Negative); URINE CLARITY CLEAR; URINE COLOR YELLOW; URINE GLUCOSE-RANDOM NEGATIVE (Negative); URINE KETONES NEGATIVE (Negative); URINE LEUKOCYTES-REFLEX TRACE (Negative); URINE NITRITE-REFLEX POSITIVE (Negative); URINE PROTEIN NEGATIVE (Negative); URINE SPECIFIC GRAVITY <= 1.005 (1.005-1.030); URINE UROBILINOGEN 0.2 E.U./dl (0.2-1.0)
[2018-11-03 10:31] LABS: BACTERIA-REFLEX None Seen /HPF (None Seen); CASTS None Seen /LPF (None Seen); CRYSTALS None Seen /LPF (None Seen); SQUAMOUS 0-3 Few /LPF (0-3); URINE RBC 0-2 Rare /HPF (0-2); URINE WBC-REFLEX 0-5 Rare /HPF (0-5)
[2018-11-03] MEDS ORDERED: MACROBID 100 M100 M2 PO (12:01)
[2018-11-03 12:23] VITALS: BP 118/46
== END 2018-11-03 12:24 | disposition home or self-care (01) ==
LOC: M.ERS 09:10
PROVIDERS: Personal Emergency Response Attendant
DX: N39.0 Urinary tract infection, site not specified (principal); E86.0 Dehydration; M06.9 Rheumatoid arthritis, unspecified; Z88.1 Allergy status to other antibiotic agents; Z88.5 Allergy status to narcotic agent; Z88.4 Allergy status to anesthetic agent; Z88.2 Allergy status to sulfonamides; Z88.8 Allergy status to other drugs, medicaments and biological substances

== ENCOUNTER → 2018-12-08 | Outpatient (CLI) | payer OTHER ==
[~2018-12-08] MED LIST changes: +MACROBID 100 M100 M2 PO
== END ==
LOC: M.NUC 12-01 13:00
DX: R10.11 Right upper quadrant pain (principal)

== ENCOUNTER → 2019-01-18 | Outpatient (CLI) | payer OTHER | LOC: M.CT 17:30 | DX: R91.8 Other nonspecific abnormal finding of lung field (principal); R19.7 Diarrhea, unspecified; R79.89 Other specified abnormal findings of blood chemistry ==

== ENCOUNTER → 2019-02-17 | Outpatient (CLI) | payer OTHER ==
[~2019-02-17] MED LIST changes: +CALCIUM MAGNES1 EACH PO; +MACROBID 100 M100 MG PO; +MELATONIN5 MG SUBLING
== END ==
LOC: M.CT 12:24
DX: R91.1 Solitary pulmonary nodule (principal); E04.1 Nontoxic single thyroid nodule; I70.0 Atherosclerosis of aorta; I77.810 Thoracic aortic ectasia; N28.1 Cyst of kidney, acquired; M81.0 Age-related osteoporosis without current pathological fracture; Z88.8 Allergy status to other drugs, medicaments and biological substances; Z88.0 Allergy status to penicillin; Z88.2 Allergy status to sulfonamides; Z85.72 Personal history of non-Hodgkin lymphomas

== ENCOUNTER 2019-02-28 08:30 | Emergency (ER) | payer OTHER ==
[~2019-02-28] VITALS: Ht 157.5 cm; Wt 50.8 kg
[~2019-02-28 08:30] MED LIST changes: -CALCIUM MAGNES1 EACH PO; -MACROBID 100 M100 MG PO; -MELATONIN5 MG SUBLING
[2019-02-28] MEDS ORDERED: MELATONIN5 MG SUBLING (08:43)
[2019-02-28] MEDS ORDERED: CALCIUM MAGNES1 EACH PO (08:43)
[2019-02-28 08:57] LABS: ABSOLUTE EOSINOPHILS 0.2 thou/uL (0.0-0.7); ABSOLUTE LYMPHOCYTES 1.5 thou/uL (0.8-5.3); ABSOLUTE MONOCYTES 0.7 thou/uL (0.0-1.2); ABSOLUTE NEUTROPHILS 7.3 thou/uL (1.6-8.1); BASOPHILS 0.5 %; EOSINOPHILS 2.1 %; HEMOGLOBIN 12.5 gm/dL (12.0-15.0); LYMPHOCYTES 15.1 %; MCH 30.6 pg (26.0-34.0); MCHC 33.7 g/dL (28.0-37.0); MCV 90.9 fL (80.0-100.0); MONOCYTES 7.5 %; MPV 8.6 fl. (7.2-11.1); NUCLEATED RBCS 0 /100WBC; PLATELET COUNT* 294 thou/uL (150-400); POLYS 74.8 %; RBC 4.08 mil/uL (4.20-5.00); RDW-CV 13.8 % (10.5-14.5); WBC 9.8 thou/uL (4.0-11.0)
[2019-02-28 09:02] LABS: CALCIUM 8.5 mg/dL (8.5-10.1); POTASSIUM 4.1 mmol/L (3.5-5.1)
[2019-02-28 09:06] LABS: ALBUMIN 3.5 g/dL (3.4-5.0); MAGNESIUM 1.6 mg/dL (1.8-2.4); TOTAL BILIRUBIN 0.3 mg/dL (<0.1-1.0); TOTAL PROTEIN 7.9 g/dL (6.4-8.2)
[2019-02-28 09:31] LABS: URINE BILIRUBIN NEGATIVE (Negative); URINE BLOOD 2+ (Negative); URINE CLARITY CLEAR; URINE COLOR YELLOW; URINE GLUCOSE-RANDOM NEGATIVE (Negative); URINE KETONES NEGATIVE (Negative); URINE LEUKOCYTES-REFLEX 1+ (Negative); URINE NITRITE-REFLEX NEGATIVE (Negative); URINE PROTEIN NEGATIVE (Negative); URINE SPECIFIC GRAVITY 1.015 (1.005-1.030); URINE UROBILINOGEN 0.2 E.U./dl (0.2-1.0)
[2019-02-28 09:38] LABS: SQUAMOUS 0-3 Few /LPF (0-3); WBC CLUMPS Few (None Seen)
[2019-02-28 09:39] LABS: URINE RBC 3-10 Few /HPF (0-2)
[2019-02-28 09:40] LABS: CRYSTALS None Seen /LPF (None Seen); HYALINE CASTS 0-3 Few /LPF (None Seen); MUCUS 0-3 Light strn/LPF (None Seen)
[2019-02-28] MEDS ORDERED: MACROBID 100 M100 MG PO (10:04)
[2019-02-28 10:11] VITALS: BP 115/57
== END 2019-02-28 10:12 | disposition home or self-care (01) ==
LOC: M.ERS 08:30
PROVIDERS: Personal Emergency Response Attendant
DX: N39.0 Urinary tract infection, site not specified (principal); E86.0 Dehydration; M06.9 Rheumatoid arthritis, unspecified; Z90.49 Acquired absence of other specified parts of digestive tract; Z88.1 Allergy status to other antibiotic agents; Z88.2 Allergy status to sulfonamides; Z88.6 Allergy status to analgesic agent; Z88.8 Allergy status to other drugs, medicaments and biological substances

== ENCOUNTER 2019-05-06 11:40 | Emergency (ER) | payer OTHER ==
[~2019-05-06] VITALS: Ht 157.5 cm; Wt 49.9 kg
[~2019-05-06 11:40] MED LIST changes: +CALCIUM MAGNES1 EACH PO; +MACROBID 100 M100 MG PO; +MELATONIN5 MG SUBLING
[2019-05-06] MEDS ORDERED: FIBERCON CHEWA625 MG PO (11:54)
[2019-05-06] MEDS ORDERED: CALCIUM WITH M1 EACH PO (11:55)
[2019-05-06] MEDS ORDERED: WELCHOL 625 MG625 M1 (11:55)
[2019-05-06] MEDS ORDERED: FLORASTOR250 MG PO (11:56)
[2019-05-06 12:53] LABS: ABSOLUTE BASOPHILS 0.1 thou/uL (0.0-0.2); ABSOLUTE MONOCYTES 0.6 thou/uL (0.0-1.2); ABSOLUTE NEUTROPHILS 7.6 thou/uL (1.6-8.1); BASOPHILS 0.7 %; EOSINOPHILS 0.3 %; HEMATOCRIT 36.8 % (37.0-47.0); HEMOGLOBIN 12.3 gm/dL (12.0-15.0); LYMPHOCYTES 10.7 %; MCH 29.8 pg (26.0-34.0); MCHC 33.4 g/dL (28.0-37.0); MCV 89.3 fL (80.0-100.0); MONOCYTES 6.3 %; MPV 8.4 fl. (7.2-11.1); NUCLEATED RBCS 0 /100WBC; PLATELET COUNT* 269 thou/uL (150-400); RBC 4.12 mil/uL (4.20-5.00); RDW-CV 15.7 % (10.5-14.5); WBC 9.3 thou/uL (4.0-11.0)
[2019-05-06 13:25] LABS: CALCIUM 8.1 mg/dL (8.5-10.1); CREATININE 0.9 mg/dL (0.6-1.3)
[2019-05-06 13:36] LABS: ALBUMIN 3.5 g/dL (3.4-5.0); TOTAL BILIRUBIN 0.2 mg/dL (<0.1-1.0); TOTAL PROTEIN 7.6 g/dL (6.4-8.2)
--- NOTE | 2019-05-06 13:56 | EKG ---
[place] [address] ELECTROCARDIOGRAM REPORT Name: JUAREZ TARIQ Room: [facility]#: [id number] Admission: 05/06/19 Attend Phys: Discharge: Date of : 36 Report #: [id number] THIS REPORT FOR: //name// [facility] ED Test Date: 2019-05-06 Test Time: 12:29:13 Pat Name: JUAREZ MARCIANO Department: Room: Gender: F Clinic Office Coordinator: : 1940 Requested By: Vianca Mina Order Number: [id number] MD: Jonathan Alberto Measurements Intervals [place] Rate: 75 P: 78 MO: 146 QRS: 58 QRSD: 88 T: 54 QT: 394 QTc: 441 Interpretive Statements Sinus rhythm Low voltage, precordial leads Compared to ECG 05/23/2018 15:22:34 Low QRS voltage now present Electronically Signed On 05-06-2019 13:55:29 COMMODITIES CLERK by Jonathan Alberto [email or web address] <ELECTRONICALLY SIGNED> By: Jonathan Alberto MD, [facility] 05/06/19 1355 1229 Jonathan Alberto MD, FACC /EPI
[2019-05-06 14:51] VITALS: BP 131/53
== END 2019-05-06 14:52 | disposition home or self-care (01) ==
LOC: M.ERS 11:40
PROVIDERS: Nurse Practitioner Family
DX: E86.0 Dehydration (principal); M06.9 Rheumatoid arthritis, unspecified; Z88.1 Allergy status to other antibiotic agents; Z88.5 Allergy status to narcotic agent; Z88.2 Allergy status to sulfonamides; Z88.8 Allergy status to other drugs, medicaments and biological substances; Z90.49 Acquired absence of other specified parts of digestive tract